=== PATIENT | male | born 1995 | race Caucasian/White ===

== ENCOUNTER 2023-11-04 08:11 | Emergency (ER) | payer BC, OTHER | END 2023-11-04 09:08 | disposition home or self-care (01) | LOC: VM.ED 08:11 | DX: S46.002A Unspecified injury of muscle(s) and tendon(s) of the rotator cuff of left shoulder, initial encounter (principal); X50.0XXA Overexertion from strenuous movement or load, initial encounter | CPT/HCPCS: 99283 ==